=== PATIENT | female | born 1975 | race Caucasian/White ===

== ENCOUNTER 2020-01-20 09:55 | Day surgery (SDC) | payer MEDICARE ==
[2020-01-20] MEDS ORDERED: Depo-Medrol 40 MG/ML IM ONE (09:56)
[2020-01-20] MEDS ORDERED: Xylocaine-Mpf 2% 5 Ml Vial IJ ONE (09:56)
[2020-01-20] MEDS ORDERED: Ketamine HCl 50 MG/ML ONE (11:22)
[2020-01-20] MEDS ORDERED: DIPRIVAN 200 MG/20 ML IV ONE (11:22)
[2020-01-20] MEDS ORDERED: Lactated Ringers 1,000 ML IV ONE (12:51)
--- NOTE | 2020-01-20 14:39 | XRAY ---
15 seconds fluoroscopy time in surgery for bilateral L3-S1 MBB.
--- NOTE | 2020-01-23 21:29 | XRAY ---
Indication: Bilateral L3-S1 MBB. Intraoperative fluoroscopy was provided for 15 seconds. A single digital spot image submitted for interpretation demonstrates posterior spinal needle tips projected over the expected course of the left and right L3-S1 nerve roots. Correlate with intraoperative findings/report.
== END 2020-01-20 11:52 | disposition home or self-care (01) ==
LOC: SDC-PAIN 09:55
PROVIDERS: ATTEND Psychiatry & Neurology Pain Medicine
DX: M47.816 Spondylosis without myelopathy or radiculopathy, lumbar region (principal); J44.9 Chronic obstructive pulmonary disease, unspecified; M81.0 Age-related osteoporosis without current pathological fracture; Z79.899 Other long term (current) drug therapy
CPT/HCPCS: 64493; 64494; 64495; 72020; 77002; J1030; J2704

== ENCOUNTER 2020-02-10 12:50 | Day surgery (SDC) | payer MEDICARE ==
[~2020-02-10 12:50] MED LIST: DIPRIVAN 200 MG/20 ML IV ONE; Ketamine HCl 50 MG/ML ONE
[2020-02-10] MEDS ORDERED: Depo-Medrol 40 MG/ML IM ONE (12:51)
[2020-02-10] MEDS ORDERED: Marcaine 0.5% SDV 10 ML IJ ONE (12:51)
--- NOTE | 2020-02-10 16:25 | XRAY ---
Indication: Left SI joint injection. Intraoperative fluoroscopy was provided for 10 seconds. 2 digital spot images submitted for interpretation demonstrates posterior needle tip projecting over the inferior left SI joint. Correlate with intraoperative findings/report.
[2020-02-10] MEDS ORDERED: Lactated Ringers 1,000 ML IV ONE (16:37)
--- NOTE | 2020-02-10 16:48 | XRAY ---
10 seconds fluoroscopy time in surgery for left SI joint injection.
== END 2020-02-10 14:20 | disposition home or self-care (01) ==
LOC: SDC-PAIN 12:50
PROVIDERS: ATTEND Psychiatry & Neurology Pain Medicine
DX: M46.1 Sacroiliitis, not elsewhere classified (principal); J44.9 Chronic obstructive pulmonary disease, unspecified; Z79.899 Other long term (current) drug therapy
CPT/HCPCS: 72020; 77002; G0260; 27096; J1030; J2704

== ENCOUNTER 2020-03-16 10:53 | Day surgery (SDC) | payer MEDICARE ==
[2020-03-16] MEDS ORDERED: BUPIVACAINE 0.5% VIAL IJ ONE (10:54)
[2020-03-16] MEDS ORDERED: Depo-Medrol 40 MG/ML IM ONE (10:54)
[2020-03-16] MEDS ORDERED: DIPRIVAN 200 MG/20 ML IV ONE (12:17)
[2020-03-16] MEDS ORDERED: Ketamine HCl 50 MG/ML ONE (12:17)
[2020-03-16] MEDS ORDERED: Lactated Ringers 1,000 ML IV ONE (14:40)
--- NOTE | 2020-03-16 16:48 | XRAY ---
Indication: Left SI joint injection. Intraoperative fluoroscopy was provided for 24 seconds. 2 digital spot images submitted for interpretation demonstrates posterior needle tip projecting over the inferior left SI joint. Correlate with intraoperative findings/report.
--- NOTE | 2020-03-16 17:11 | XRAY ---
24 seconds of fluoroscopy was used in surgery for a left SI joint injection.
== END 2020-03-16 12:43 | disposition home or self-care (01) ==
LOC: SDC-PAIN 10:53
PROVIDERS: ATTEND Psychiatry & Neurology Pain Medicine
DX: M46.1 Sacroiliitis, not elsewhere classified (principal); J44.9 Chronic obstructive pulmonary disease, unspecified; Z86.711 Personal history of pulmonary embolism; Z79.899 Other long term (current) drug therapy
CPT/HCPCS: 27096; 72020; 77002; J1030; J2704; G0260

== ENCOUNTER 2020-07-20 12:04 | Day surgery (SDC) | payer MEDICARE ==
[2020-07-20] MEDS ORDERED: BUPIVACAINE 0.5% VIAL IJ ONE (12:05)
[2020-07-20] MEDS ORDERED: Depo-Medrol 40 MG/ML IM ONE (12:05)
[2020-07-20] MEDS ORDERED: DIPRIVAN 200 MG/20 ML IV ONE (14:18)
[2020-07-20] MEDS ORDERED: Ketamine HCl 50 MG/ML ONE (14:18)
--- NOTE | 2020-07-20 15:16 | XRAY ---
Indication: Bilateral L3-S1 MBB. Intraoperative fluoroscopy was provided for 10 seconds. Single digital spot image submitted for interpretation demonstrates posterior needle tips projecting over the expected left and right L3-S1 nerve roots. Correlate with intraoperative findings/report.
[2020-07-20] MEDS ORDERED: Lactated Ringers 1,000 ML IV ONE (15:31)
--- NOTE | 2020-07-20 17:18 | XRAY ---
10 seconds fluoroscopy time in surgery for bilateral L3-S1 MBB.
== END 2020-07-20 14:48 | disposition home or self-care (01) ==
LOC: SDC-PAIN 12:04
PROVIDERS: ATTEND Psychiatry & Neurology Pain Medicine
DX: M47.816 Spondylosis without myelopathy or radiculopathy, lumbar region (principal); J44.9 Chronic obstructive pulmonary disease, unspecified; Z79.899 Other long term (current) drug therapy
CPT/HCPCS: 64493; 64494; 64495; 72020; 77002; J1030; J2704

== ENCOUNTER 2021-01-04 08:58 | Day surgery (SDC) | payer MEDICARE ==
[2021-01-04] MEDS ORDERED: BUPIVACAINE 0.5% VIAL IJ ONE (08:59)
[2021-01-04] MEDS ORDERED: Depo-Medrol 40 MG/ML IM ONE (08:59)
[2021-01-04] MEDS ORDERED: Xylocaine 1% Vial 30 ML PF IJ ONE (08:59)
[2021-01-04] MEDS ORDERED: DIPRIVAN 200 MG/20 ML IV ONE (09:41)
--- NOTE | 2021-01-04 10:43 | XRAY ---
Indication: Left L3-S1 RFA. Intraoperative fluoroscopy provided for 41 seconds. 2 digital spot images submitted for interpretation demonstrates posterior needle tips projecting over the expected left L3-S1 nerve roots. Correlate with intraoperative findings/report.
--- NOTE | 2021-01-04 10:47 | XRAY ---
41 seconds fluoroscopy time in surgery for left L3-S1 RFA.
[2021-01-04] MEDS ORDERED: Lactated Ringers 1,000 ML IV ONE (16:18)
== END 2021-01-04 10:15 | disposition home or self-care (01) ==
LOC: SDC-PAIN 08:58
PROVIDERS: ATTEND Psychiatry & Neurology Pain Medicine
DX: M47.816 Spondylosis without myelopathy or radiculopathy, lumbar region (principal); J44.9 Chronic obstructive pulmonary disease, unspecified; M81.0 Age-related osteoporosis without current pathological fracture; M19.90 Unspecified osteoarthritis, unspecified site; Z79.899 Other long term (current) drug therapy
CPT/HCPCS: 64633; 64635; 64636; 72100; 77002; J1030; J2001; J2704

== ENCOUNTER 2021-01-11 11:53 | Day surgery (SDC) | payer MEDICARE ==
[2021-01-11] MEDS ORDERED: Depo-Medrol 40 MG/ML IM ONE (11:54)
[2021-01-11] MEDS ORDERED: Xylocaine 1% Vial 30 ML PF IJ ONE (11:54)
[2021-01-11] MEDS ORDERED: BUPIVACAINE 0.5% VIAL IJ ONE (11:54)
[2021-01-11] MEDS ORDERED: DIPRIVAN 200 MG/20 ML IV ONE (13:44)
--- NOTE | 2021-01-11 15:30 | XRAY ---
Indication: Right L3-S1 RFA. Intraoperative fluoroscopy provided for 29 seconds. 3 digital spot images submitted for interpretation demonstrates posterior needle tips projecting over the expected right L3-S1 nerve roots. Correlate with intraoperative findings/report.
[2021-01-11] MEDS ORDERED: Lactated Ringers 1,000 ML IV ONE (15:57)
--- NOTE | 2021-01-11 17:50 | XRAY ---
29 seconds of fluoroscopy was used in surgery for a right L3-L4, L4-L5, and L5-S1 RFA.
== END 2021-01-11 14:15 | disposition home or self-care (01) ==
LOC: SDC-PAIN 11:53
PROVIDERS: ATTEND Psychiatry & Neurology Pain Medicine
DX: M47.816 Spondylosis without myelopathy or radiculopathy, lumbar region (principal); M19.90 Unspecified osteoarthritis, unspecified site; J44.9 Chronic obstructive pulmonary disease, unspecified; Z79.899 Other long term (current) drug therapy
CPT/HCPCS: 64635; 64636; 72100; 77002; J1030; J2001; J2704

== ENCOUNTER 2021-05-10 10:14 | Day surgery (SDC) | payer MEDICARE ==
[2021-05-10] MEDS ORDERED: Depo-Medrol 40 MG/ML IM ONE (10:15)
[2021-05-10] MEDS ORDERED: Xylocaine 1% Vial 30 ML PF IJ ONE (10:15)
[2021-05-10] MEDS ORDERED: BUPIVACAINE 0.5% VIAL IJ ONE (10:15)
[2021-05-10] MEDS ORDERED: DIPRIVAN 200 MG/20 ML IV ONE (12:17)
--- NOTE | 2021-05-10 15:14 | XRAY ---
Indication: Left SI RFA. Intraoperative fluoroscopy provided for 21 seconds. 2 digital spot images submitted for interpretation demonstrates 4 posterior needle tips projecting over the left sacrum. Correlate with intraoperative findings/report.
--- NOTE | 2021-05-10 16:31 | XRAY ---
21 seconds of fluoroscopy was used in surgery for a left SI RFA.
[2021-05-10] MEDS ORDERED: Lactated Ringers 1,000 ML IV ONE (17:27)
== END 2021-05-10 12:51 | disposition home or self-care (01) ==
LOC: SDC-PAIN 10:14
PROVIDERS: ATTEND Psychiatry & Neurology Pain Medicine
DX: M46.1 Sacroiliitis, not elsewhere classified (principal); Z79.899 Other long term (current) drug therapy
CPT/HCPCS: 64625; 72020; 77002; J1030; J2001; J2704

== ENCOUNTER 2021-08-02 16:02 | Day surgery (SDC) | payer MEDICARE ==
[2021-08-02] MEDS ORDERED: BUPIVACAINE 0.5% VIAL IJ ONE (16:03)
[2021-08-02] MEDS ORDERED: Depo-Medrol 40 MG/ML IM ONE (16:03)
[2021-08-02] MEDS ORDERED: Lactated Ringers 1,000 ML IV ONE (16:46)
[2021-08-02] MEDS ORDERED: DIPRIVAN 200 MG/20 ML IV ONE (17:14)
--- NOTE | 2021-08-02 18:46 | XRAY ---
Indication: Right hip and greater trochanter bursa injection. Intraoperative fluoroscopy provided for 32 seconds. 2 digital spot image submitted for interpretation demonstrates needle tip projecting lateral to the right femur neck. Second needle tip lateral to the greater trochanter. Small amount of contrast injected for both needle tip placement. Correlate with intraoperative findings/report.
--- NOTE | 2021-08-03 09:07 | XRAY ---
32 seconds fluoroscopy time in surgery for injections of the greater trochanter and intra-articular joint space of the right hip.
== END 2021-08-02 17:40 | disposition home or self-care (01) ==
LOC: SDC-PAIN 16:02
PROVIDERS: ATTEND Psychiatry & Neurology Pain Medicine
DX: M16.11 Unilateral primary osteoarthritis, right hip (principal); M70.61 Trochanteric bursitis, right hip; Z79.899 Other long term (current) drug therapy
CPT/HCPCS: 20610; 73502; 77002; J1030; J2704; Q9966

== ENCOUNTER 2022-06-13 15:57 | Day surgery (SDC) | payer MEDICARE ==
[2022-06-13] MEDS ORDERED: Xylocaine 1% Vial 30 ML PF IJ ONE (15:58)
[2022-06-13] MEDS ORDERED: BUPIVACAINE 0.5% VIAL IJ ONE (15:58)
[2022-06-13] MEDS ORDERED: Depo-Medrol 40 MG/ML IM ONE (15:58)
[2022-06-13] MEDS ORDERED: Lactated Ringers 1,000 ML IV ONE (16:30)
[2022-06-13] MEDS ORDERED: DIPRIVAN 200 MG/20 ML IV ONE (16:57)
--- NOTE | 2022-06-13 18:34 | XRAY ---
Indication: Left SI joint RFA. Intraoperative fluoroscopy provided for 28 seconds. 3 digital spot image submitted for interpretation demonstrates 4 posterior needle tips projecting over the left sacrum. Correlate with intraoperative findings/report.
--- NOTE | 2022-06-13 18:36 | XRAY ---
28 seconds fluoroscopy time in surgery for injection of the left SI joint.
== END 2022-06-13 17:40 | disposition home or self-care (01) ==
LOC: SDC-PAIN 15:57
PROVIDERS: ATTEND Psychiatry & Neurology Pain Medicine
DX: M46.1 Sacroiliitis, not elsewhere classified (principal); Z79.899 Other long term (current) drug therapy
CPT/HCPCS: 64625; 72170; 77002; J1030; J2001; J2704

== ENCOUNTER 2023-08-28 14:46 | Day surgery (SDC) | payer MEDICARE ==
[2023-08-28] MEDS ORDERED: XYLOCAINE-MPF 1% 5ML SDV IJ ONE (14:47)
[2023-08-28] MEDS ORDERED: Depo-Medrol 40 MG/ML IM ONE (14:47)
[2023-08-28] MEDS ORDERED: BUPIVACAINE 0.5% VIAL IJ ONE (14:47)
--- NOTE | 2023-08-28 20:09 | XRAY ---
Indication: Left SI joint injection. Intraoperative fluoroscopy provided for 9 seconds. 2 digital spot image submitted for interpretation demonstrates posterior needle tip projecting over left SI joint. Correlate with intraoperative findings/report.
--- NOTE | 2023-08-29 09:14 | XRAY ---
9 seconds of fluoroscopy was used in surgery for a left sacroiliac joint injection.
== END 2023-08-28 17:55 | disposition home or self-care (01) ==
LOC: SDC-PAIN 14:46
PROVIDERS: ATTEND Psychiatry & Neurology Pain Medicine
DX: M46.1 Sacroiliitis, not elsewhere classified (principal)
CPT/HCPCS: 27096; 72170; 77002; G0260; J1030; Q9966

== ENCOUNTER 2024-03-18 14:47 | Day surgery (SDC) | payer MEDICARE ==
[2024-03-18] MEDS ORDERED: BUPIVACAINE 0.5% VIAL IJ ONE (14:48)
[2024-03-18] MEDS ORDERED: LIDOCAINE HCL 1% 50 MG/5 ML VL PF IJ ONE (14:48)
[2024-03-18] MEDS ORDERED: Depo-Medrol 40 MG/ML IM ONE (14:48)
--- NOTE | 2024-03-18 19:17 | XRAY ---
Indication: Right shoulder and subacromial bursa injection. Intraoperative fluoroscopy provided for 22 seconds. 3 digital spot image submitted for interpretation demonstrates needle tip projecting over right glenohumeral joint superiorly. Second needle tip subacromial. Small amount of contrast injected for needle tip placement.. Correlate with intraoperative findings/report.
--- NOTE | 2024-03-19 08:52 | XRAY ---
22 seconds of fluoroscopy was used in surgery for a right intra-articular shoulder and subacromial bursa injection.
== END 2024-03-18 17:10 | disposition home or self-care (01) ==
LOC: SDC-PAIN 14:47
PROVIDERS: ATTEND Psychiatry & Neurology Pain Medicine
DX: M19.011 Primary osteoarthritis, right shoulder (principal)
CPT/HCPCS: 20610; 73030; 77002; J2001; Q9966

== ENCOUNTER 2025-06-16 15:29 | Day surgery (SDC) | payer MEDICARE ==
[2025-06-16] MEDS ORDERED: methylPREDNISolone acetate IM ONE (15:30)
[2025-06-16] MEDS ORDERED: LIDOCAINE HCL 1% 50 MG/5 ML VL IJ ONE (15:30)
[2025-06-16] MEDS ORDERED: BUPIVACAINE 0.5% VIAL IJ ONE (15:30)
--- NOTE | 2025-06-17 08:43 | XRAY ---
Indication: Right knee injection. Intraoperative fluoroscopy provided for 5 seconds. Single digital spot image submitted for interpretation demonstrates needle tip projecting over right femur intercondylar notch. Small amount of contrast injected for needle tip placement. Correlate with intraoperative findings/report.
--- NOTE | 2025-06-17 08:43 | XRAY ---
Indication: Left knee injection. Intraoperative fluoroscopy provided for 10 seconds. Single digital spot image submitted for interpretation demonstrates needle tip projecting over left femur intercondylar notch. Small amount of contrast injected for needle tip placement. Correlate with intraoperative findings/report.
--- NOTE | 2025-06-17 09:35 | XRAY ---
10 seconds of fluoroscopy was used in surgery for a left intra-articular knee injection.
--- NOTE | 2025-06-17 09:35 | XRAY ---
5 seconds of fluoroscopy was used in surgery for a right intra-articular knee injection.
== END 2025-06-16 18:30 | disposition home or self-care (01) ==
LOC: SDC-PAIN 15:29
PROVIDERS: ATTEND Psychiatry & Neurology Pain Medicine
DX: M17.0 Bilateral primary osteoarthritis of knee (principal)